=== PATIENT | female | born 1985 | race Caucasian/White ===

== ENCOUNTER → 2017-11-27 | Outpatient (REF) | payer OTHER ==
[2017-12-01 14:28] LABS: HPV HYBRID CAPTURE II Negative (Negative)
== END ==
LOC: M SFHCWAGY 16:04
DX: Z12.4 Encounter for screening for malignant neoplasm of cervix (principal)

== ENCOUNTER → 2018-03-02 | Outpatient (REF) | payer OTHER | LOC: M SFHCPLAZ 14:09 | DX: R10.9 Unspecified abdominal pain (principal) ==

== ENCOUNTER → 2018-03-18 | Outpatient (CLI) | payer BC | LOC: M RAD 07:15 | DX: R10.11 Right upper quadrant pain (principal) | CPT/HCPCS: 76705 ==

== ENCOUNTER → 2018-03-26 | Outpatient (REF) | payer BC | LOC: M SFHCPLAZ 16:55 | DX: D23.5 Other benign neoplasm of skin of trunk (principal); D23.71 Other benign neoplasm of skin of right lower limb, including hip | CPT/HCPCS: 88305 ==

== ENCOUNTER → 2018-07-07 | Outpatient (CLI) | payer BC | LOC: M WUC 11:46 | PROVIDERS: ATTEND Advanced Practice Midwife | DX: Z34.81 Encounter for supervision of other normal pregnancy, first trimester (principal); Z36.89 Encounter for other specified antenatal screening ==

== ENCOUNTER → 2018-07-07 | Outpatient (CLI) | payer BC ==
[2018-07-07 10:23] LABS: BASO % 0.4 % (0.0-1.0); EOS # 0.1 10^3/uL (0.0-0.50); EOS % 1.3 % (0.0-3.0); HEMOGLOBIN 12.1 g/dl (12.0-15.5); LYMPH # 1.6 10^3/uL (1.5-4.5); LYMPH % 23.3 % (24.0-44.0); MEAN CORPUSCULAR HEMOGLOBIN 32.1 pg (27.0-33.0); MEAN CORPUSCULAR HGB CONC 34.6 g/dl (32.0-36.5); MEAN CORPUSCULAR VOLUME 92.8 fl (80.0-96.0); MONO # 0.4 10^3/uL (0.0-0.8); MONO % 5.1 % (0.0-5.0); NEUTROPHILS # 4.9 10^3/uL (1.8-7.7); NEUTROPHILS % 69.5 % (36.0-66.0); PLATELET COUNT, AUTOMATED 292 10^3/uL (150-450); RED BLOOD COUNT 3.77 10^6/uL (4.00-5.40); WHITE BLOOD COUNT 7.1 10^3/uL (4.0-10.0)
[2018-07-07 11:16] LABS: HEPATITIS C VIRUS ABY INDEX 0.1 INDEX (<0.8); HIV 1&2 SCREEN CENTAUR NEGATIVE (NEGATIVE); RUBELLA IgG QUALITATIVE IMMUNE (IMMUNE)
[2018-07-07 12:33] LABS: CHLAMYDIA DNA AMPLIFICATION NEGATIVE (NEGATIVE); GC DNA AMPLIFICATION NEGATIVE (NEGATIVE)
== END ==
LOC: M SMT 08:00
PROVIDERS: ATTEND Advanced Practice Midwife
DX: Z34.81 Encounter for supervision of other normal pregnancy, first trimester (principal); Z36.89 Encounter for other specified antenatal screening

== ENCOUNTER → 2018-09-07 | Outpatient (CLI) | payer BC ==
--- NOTE | 2018-09-08 11:51 | REP ---
Clinical: Anatomical evaluation. Comparison: None . Findings: Examination demonstrates a single live intrauterine in variable presentation. motion is identified by technologist. Placenta is noted anterior and grade grade zero without evidence for placenta previa or abruption. Amniotic fluid volume is normal. Cervix measures 3.2 cm in length and appears closed. No evidence for nuchal cord. Gestational age by LMP 19 weeks 0 days with SYL [birth year]/1990 . Gestational age by current measurements 19 weeks for the with YSL it is 01/28/2019 . FHR equals 151 beats per minute. BPD 4.3 cm 19 weeks 0 days HC 16.7 cm 19 weeks 2 days AC 15.2 cm 20 weeks 3-day FL 3.2 cm 20 weeks 0 days HL 3.3 cm 21 weeks 0 days HC/AC ratio 1.10 Estimated weight 332 grams ( 91st percentile). Anatomical assessment demonstrates normal structures including cranium, choroid plexus, cavum, cerebellum/posterior fossa, facial features, lungs, four-chamber heart/ventricular outflow tracts, diaphragm, stomach, cord insertion/three-vessel cord, kidneys/bladder, spine, and extremities. Note is made of an echogenic focus within the left cardiac ventricle likely prominent chordae tendineae. Impression: 1. Single live intrauterine in variable presentation demonstrating appropriate interval growth. 2. Anatomical evaluation as noted above with prominent presumed chordae tendineae. Electronically Signed by Arnoldo Reese MD 09/08/2018 11:35 A
== END ==
LOC: M RAD 07:40
PROVIDERS: ATTEND Advanced Practice Midwife
DX: Z34.82 Encounter for supervision of other normal pregnancy, second trimester (principal); Z3A.00 Weeks of gestation of pregnancy not specified

== ENCOUNTER → 2018-11-02 | Outpatient (CLI) | payer BC ==
[2018-11-02 13:23] LABS: BASO % 0.4 % (0.0-1.0); EOS # 0.1 10^3/uL (0.0-0.50); EOS % 0.8 % (0.0-3.0); HEMATOCRIT 33.9 % (36.0-47.0); HEMOGLOBIN 11.6 g/dl (12.0-15.5); LYMPH # 1.9 10^3/uL (1.5-4.5); LYMPH % 22.7 % (24.0-44.0); MEAN CORPUSCULAR HEMOGLOBIN 31.9 pg (27.0-33.0); MEAN CORPUSCULAR HGB CONC 34.2 g/dl (32.0-36.5); MEAN CORPUSCULAR VOLUME 93.1 fl (80.0-96.0); MONO # 0.5 10^3/uL (0.0-0.8); MONO % 5.5 % (0.0-5.0); NEUTROPHILS % 70.4 % (36.0-66.0); PLATELET COUNT, AUTOMATED 256 10^3/uL (150-450); RED BLOOD COUNT 3.64 10^6/uL (4.00-5.40); WHITE BLOOD COUNT 8.5 10^3/uL (4.0-10.0)
== END ==
LOC: M SMT 08:45
PROVIDERS: ATTEND Specialist
DX: Z34.02 Encounter for supervision of normal first pregnancy, second trimester (principal); Z3A.00 Weeks of gestation of pregnancy not specified

== ENCOUNTER → 2019-01-04 | Outpatient (REF) | payer BC | LOC: M LAB REF 17:04 | PROVIDERS: ATTEND Obstetrics & Gynecology | DX: Z36.85 Encounter for antenatal screening for Streptococcus B (principal) ==

== ENCOUNTER 2019-01-31 10:07 | Inpatient (IN) | payer BC ==
[2019-01-31] VITALS (34 sets, daily range): BP systolic 103–138; BP diastolic 55–83
[~2019-01-31] VITALS: Ht 165.1 cm; Wt 81.8 kg
[2019-01-31] MEDS ORDERED: LACTATED RINGER'S 1000 ML IV STA (10:20)
--- NOTE | 2019-01-31 10:45 | HPEPDOC ---
Obstetrical History & Physical General Date of Admission Jan 31, 2019 at 10:07 Primary Care Physician: MEHDI CHAVEZ CNM History of Present Illness Patient is a 33-year-old female who is a at 39.6 weeks gestation with an SYL of 02/01/19 based of off her first trimester ultrasound. She initiated care in her first trimester with [facility]. Her has been uncomplicated. She presents to L&D with complaints of contractions since 0430. She reports active movement and bloody show. She denies leaking of fluid. Chief Complaint: Active Labor Information Provided By: Patient Age: 33 : 1 Term: 0 Pre-term: 0 Abortions: 0 Livin Care Care: Good Care Dating Final EDC: Feb 01, 2019 Final EDC by: 1st trimester (US) LMP: Apr 17, 2018 EGA at Admission: 39.6 Antepartum Course Height (inches): 65 Pre- weight (lbs.): 153 Admission Weight (lbs.): 182 Change in Weight (lbs.): 29 Past Medical History Past Obstetrical History : Past Obstetrical History: [facility]img[facility] [employer] History: History of STD (years ago and treated) Past Medical History Medical History varicella as a child Surgical History: Other (mole removal) Family History Significant Family History: Asthma, Cancer, Diabetes Social History Marital Status: Family situation: Spouse/partner home * Smoker: non-smoker Alcohol: Denies Drugs: denies Imunizations Tdap status: current Influenza Status: current Allergies Coded Allergies: No Known Allergies (Unverified , 01/31/19) Physical Examination Physical Examination GENERAL: Alert and oriented times three. BREAST: . ABDOMEN: Gravid and non-tender to touch. FETUS: Is vertex (VTX) by sterile vaginal examination (SVE), fetus is vertex (VTX) by Zackary. HEART RATE: Regular rate and rhythm. LUNGS: Clear to auscultation (CTA). EXTREMITIES: No edema. No clonus. Deep tendon reflexes (DTRs) + 2. Laboratory Data 24H LABS Laboratory Tests 2 01/31/19 10:18: Serology Scanned Report Hepatitis B Testing Urine Culture: No Growth Pertinent Laboratoy Data Blood Type: A+ RBC Antibody Screen: Negative HIV: Negative Hepatitis B: Negative Hepatitis C: Negative Rapid Plasma Reagin: Nonreactive Rubella: Immune Chlamydia/Gonorrhea: Negative Group B Streptococcus: Negative Glucose Tolerance Test: 74 Diag/Inter Therapy NIPT testing low risk and normal male Vaginal Examination Dilation: 3 cm Effacement: 100% Station: 0 Presentation: Cephalic presentation Position: Vertex (occiput) Assessment Heart Rate (FHR): 130 Variability: Moderate Accelerations: Positive Decelerations: None Tocometer Contractions: Yes Frequency: regular Assessment/Plan Assessment IUP at 39.6 weeks gestation active labor at term GBS negative Category I FHR tracing Plan Admit to L&D. OOB ad laurie. Diet: clears. Group B Streptococcus (GBS) negative. Labs and intravenous (IV) per unit protocol. Lactated Ringers (LR): Bolus 800 mL prior to epidural, then at 125 mL/hr. Anesthesia consult per patient's request. Anticipate cervical change. MEHDI CHAVEZ CNM Jan 31, 2019 10:44
[2019-01-31 11:30] LABS: HEMATOCRIT 37.2 % (36.0-47.0); HEMOGLOBIN 13.2 g/dl (12.0-15.5); MEAN CORPUSCULAR HEMOGLOBIN 31.6 pg (27.0-33.0); MEAN CORPUSCULAR HGB CONC 35.5 g/dl (32.0-36.5); PLATELET COUNT, AUTOMATED 249 10^3/uL (150-450); RED BLOOD COUNT 4.18 10^6/uL (4.00-5.40); WHITE BLOOD COUNT 12.1 10^3/uL (4.0-10.0)
[2019-01-31] MEDS ORDERED: FENTANYL 2MCG/ML ROPIVACAINE 0.2% IN 0.9% NACL 100ML IVBAG As Ordered ONE (11:35)
[2019-01-31] MEDS ORDERED: EPIDURAL COMMENT XX SCH (13:00)
[2019-01-31] MEDS ORDERED: FENTANYL/ROPIVACAINE/NACL BAG 100 ML EPIDURAL SCH (13:00)
[2019-01-31] MEDS ORDERED: diphenhydrAMINE INJ 50MG/ML VIAL (J1200) IV PRN (13:00)
[2019-01-31] MEDS ORDERED: REFRIGERATOR IV KEYS XX PRN (13:00)
[2019-01-31] MEDS ORDERED: EPIDURAL/PCA KEYS XX PRN (13:00)
[2019-01-31] MEDS ORDERED: ePHEDrine SULFATE 25 MG/5 ML(5MG/ML) SYRINGE IV PRN (13:00)
[2019-01-31] MEDS ORDERED: NALOXONE INJ 0.4 MG/1 ML VIAL (J2310) IV PRN (13:00)
[2019-01-31] MEDS ORDERED: ONDANSETRON 4MG/2ML VIAL (J2405) IV PRN (13:00)
--- NOTE | 2019-01-31 13:29 | IPNPDOC ---
Obstetrical Progress Note Date of Service Jan 31, 2019 Subjective Patient reports she if comfortable with her epidural. Objective Vital Signs Date Time Temp Pulse Resp B/P (MAP) Pulse Ox O2 Delivery O2 Flow Rate FiO2 01/31/19 11:15 63 18 118/74 (89) 01/31/19 10:29 97.2 Assessment Heart Rate (FHR): 120 Variability: Moderate Accelerations: Positive Decelerations: None Heart Rate Tracing: Category I Tocometer Contractions: Yes Frequency: regular Sterile Vaginal Examination Dilation: 4 cm Effacement (%): 100% Station: 0 (moderate amount of bloody show. ) Assessment and Plan Age: 33 : 1 Term: 0 Pre-term: 0 Abortions: 0 Livin EGA at Admission: 39.6 Status: Reassuring Group B Streptococcus: Negative Anticipate: Vaginal Delivery MEHDI CHAVEZ CNM Jan 31, 2019 13:29
--- NOTE | 2019-01-31 15:40 | IPNPDOC ---
Obstetrical Progress Note Date of Service Jan 31, 2019 Subjective Patient comfortable with her epidural. Objective Vital Signs Date Time Temp Pulse Resp B/P (MAP) Pulse Ox O2 Delivery O2 Flow Rate FiO2 01/31/19 13:55 66 18 103/70 (81) 01/31/19 10:29 97.2 Assessment Heart Rate (FHR): 120 Variability: Moderate Accelerations: Positive Decelerations: None Heart Rate Tracing: Category I Tocometer Contractions: Yes Frequency: regular Sterile Vaginal Examination Dilation: 4 cm (4-5 cm) Effacement (%): 100% Station: 0 Assessment and Plan Status: Reassuring Group B Streptococcus: Negative Additional Comments Moderate amount of bleeding noted. Consider diagnosis of placental abruption. Dr. Gonzalez notified and will be over after office hours when AROM is done. Will start low dose IV Pitocin to see how fetus tolerates stronger contractions. MEHDI CHAVEZ CNM Jan 31, 2019 15:40
[2019-01-31] MEDS ORDERED: OXYTOCIN DRIP 30 UNITS in IV 1 EA IV SCH (15:45)
--- NOTE | 2019-01-31 16:59 | IPNPDOC ---
Obstetrical Progress Note Date of Service Jan 31, 2019 Subjective Patient reports feeling some rectal pressure with contractions. Objective Vital Signs Date Time Temp Pulse Resp B/P (MAP) Pulse Ox O2 Delivery O2 Flow Rate FiO2 01/31/19 13:55 66 18 103/70 (81) 01/31/19 10:29 97.2 Assessment Heart Rate (FHR): 130 Variability: Moderate Accelerations: Positive Decelerations: Prolonged Heart Patterns: Bradycardia Heart Rate Tracing: Category II Tocometer Contractions: Yes Frequency: regular, other (2-4 minutes) Sterile Vaginal Examination Dilation: 5 cm Effacement (%): 100% Station: 0 Postion/Presentation: Cephalic presentation Assessment and Plan EGA at Admission: 39.6 Additional Comments AROM to a large amount of thick meconium. No extra bleeding noted with AROM. After AROM patient reported the need to urinate. Rubalcava bulb checked and repositioned. With exam a moderate amount of red bleeding was noted. FSE attempted but not recording. FSE removed. Prolonged deceleration noted into the 90's. Dr. Gonzalez present during exam. Patient repositioned, O2 applied and bolus started. Resolved bradycardia. Will continue to monitor. Category I tracing noted after bradycardia resolved. Reviewed with patient and family that she may be having a placental abruption and if continued heart rate changes and increased vaginal bleeding noted that a section may be warranted. Patient verbalized understanding. Will continue to monitor. IV Pitocin was also shut off with start of bradycardia. MEHDI CHAVEZ CNM Jan 31, 2019 16:59
[2019-01-31] MEDS ORDERED: LR 1,000 ML IV SCH (17:00)
--- NOTE | 2019-01-31 19:25 | IPNPDOC ---
Obstetrical Progress Note Date of Service Jan 31, 2019 Subjective Reports she can feel some of the contractions in her back but is comfortable. Objective Vital Signs Date Time Temp Pulse Resp B/P (MAP) Pulse Ox O2 Delivery O2 Flow Rate FiO2 01/31/19 18:23 99.5 66 18 122/77 (92) Assessment Heart Rate (FHR): 130 Variability: Minimal to moderate Accelerations: Positive Decelerations: None Heart Rate Tracing: Category I Tocometer Contractions: Yes Frequency: regular, other (every 2-4 minutes) Sterile Vaginal Examination Dilation: 7 cm Effacement (%): 100% Station: 0 Postion/Presentation: Cephalic presentation Assessment and Plan Age: 33 : 1 Livin EGA at Admission: 39.6 Status: Reassuring Group B Streptococcus: Negative Additional Comments Scant amount of bleeding noted with cervical exam. Will continue to monitor bleeding, FHR, and contraction pattern. Will notify neonatology when we are closer to delivery. Reviewed with patient and family that we will continue to monitor. Reviewed probably diagnosis of placental abruption. Reviewed increased risk of . Patient reports she desires to try for a vaginal delivery. Dr. Gonzalez notified of cervical change. MEHDI CHAVEZ CNM Jan 31, 2019 19:25
--- NOTE | 2019-01-31 20:41 | IPNPDOC ---
Obstetrical Progress Note Date of Service Jan 31, 2019 Subjective Reports pain located left sided-upper back. States she is nauseous and shaking. Objective Vital Signs Date Time Temp Pulse Resp B/P (MAP) Pulse Ox O2 Delivery O2 Flow Rate FiO2 01/31/19 19:30 99.3 16 01/31/19 18:23 66 122/77 (92) Assessment Heart Rate (FHR): 130 Variability: Moderate Accelerations: Positive Decelerations: None Heart Rate Tracing: Category I Tocometer Contractions: Yes Frequency: regular Sterile Vaginal Examination Dilation: complete Effacement (%): 100% Station: +1 Postion/Presentation: Cephalic presentation Assessment and Plan Status: Reassuring Group B Streptococcus: Negative Anticipate: Vaginal Delivery Additional Comments Anesthesia contacted to help give patient some pain control. Will labor down for 30-45 minutes and then start to push. Placenta is anterior. She denies any pain in abdomen. Neonatology will be notified after we start pushing. MEHDI CHAVEZ CNM Jan 31, 2019 20:41
--- NOTE | 2019-01-31 21:08 | IPNPDOC ---
Obstetrical Progress Note Date of Service Jan 31, 2019 Subjective Patient reports pain is still present in upper left back region after anesthesia gave her a bolus. Objective Vital Signs Date Time Temp Pulse Resp B/P (MAP) Pulse Ox O2 Delivery O2 Flow Rate FiO2 01/31/19 19:30 99.3 16 01/31/19 18:23 66 122/77 (92) Assessment Heart Rate (FHR): 130 Variability: Moderate Accelerations: Positive Decelerations: None Heart Rate Tracing: Category II Tocometer Contractions: Yes Frequency: regular Sterile Vaginal Examination Dilation: complete Effacement (%): 100% Station: +1 Assessment and Plan Additional Comments Reviewed status of patient with Dr. Gonzalez. We will continue to push at this point. Reviewed scan bleeding and location of pain with Dr. Gonzalez. He will attend delivery if there is a change in FHR or increased bleeding. MEHDI CHAVEZ CNM Jan 31, 2019 21:08
--- NOTE | 2019-01-31 21:31 | IPNPDOC ---
Obstetrical Progress Note Date of Service Jan 31, 2019 Objective Vital Signs Date Time Temp Pulse Resp B/P (MAP) Pulse Ox O2 Delivery O2 Flow Rate FiO2 01/31/19 19:30 99.3 16 01/31/19 18:23 66 122/77 (92) Assessment and Plan Additional Comments Dr. Gonzalez called and instructed to come in to evaluate patient. MEHDI CHAVEZ CNM Jan 31, 2019 21:31
[2019-02-01] VITALS (10 sets, daily range): BP systolic 106–146; BP diastolic 57–99
[2019-02-01] MEDS ORDERED: OXYTOCIN DRIP 30 UNITS in IV 1 EA IV SCH (00:07)
[2019-02-01] MEDS ORDERED: METHYLERGONOVINE MALEATE 0.2 MG TAB PO PRN (00:15)
[2019-02-01] MEDS ORDERED: DIBUCAINE 1% OINTMENT 30GM TOP PRN (00:15)
[2019-02-01] MEDS ORDERED: ANUSOL HC CREAM 30GM TOP PRN (00:15)
[2019-02-01] MEDS ORDERED: MEASLES,MUMPS,RUBELLA VACCINE INJ (MMR-II) (90707) SC SCH (00:15)
[2019-02-01] MEDS ORDERED: ACETAMINOPHEN TAB 650MG DOSE (2X325MG) PO PRN (00:15)
[2019-02-01] MEDS ORDERED: RHOGAM 300 MCG (1500 IU) INJ (J2790) IM SCH (00:15)
[2019-02-01] MEDS ORDERED: DOCUSATE SODIUM 100 MG CAP PO PRN (00:15)
[2019-02-01] MEDS ORDERED: IBUPROFEN 600 MG TAB PO PRN (00:15)
[2019-02-01] MEDS: ACETAMINOPHEN 500 MG TAB PO PRN ×3 (01:43→15:00)
[2019-02-01] MEDS: IBUPROFEN 800 MG TAB PO PRN ×3 (01:43→19:21)
[2019-02-01 06:44] LABS: HEMATOCRIT 27.2 % (36.0-47.0); MEAN CORPUSCULAR HEMOGLOBIN 32.1 pg (27.0-33.0); MEAN CORPUSCULAR HGB CONC 35.3 g/dl (32.0-36.5); PLATELET COUNT, AUTOMATED 187 10^3/uL (150-450); RED BLOOD COUNT 2.99 10^6/uL (4.00-5.40); WHITE BLOOD COUNT 16.2 10^3/uL (4.0-10.0)
[2019-02-01 06:49] LABS: HEMOGLOBIN 9.6 g/dl (12.0-15.5)
[2019-02-01] MEDS: PRENATAL VITAMINS CHEWABLE TABLET PO SCH (08:21)
--- NOTE | 2019-02-01 08:27 | IPNPDOC ---
Progress Note Date of Service: Feb 01, 2019 Day#: 1 Progress Note SUBJECT: She has been ambulating, voiding spontaneously without issue and tolerating regular diet. Reports her perineum area is sore. OBJECTIVE: VITAL SIGNS: Within normal limits, afebrile. Alert and oriented times three. Breath sounds clear to auscultation. Heart rate: Regular rate and rhythm, no murmurs, rubs or gallops. Abdomen: Fundus firm at U-1. Soft, NTTP. Minimal lochia. Perineum: swollen with erythema. ASSESSMENT: Day 1 PLAN: 1. Continue supportive nursing care. 2. Anticipate discharge tomorrow. VS, I&O, 24H, Fishbone Vital Signs/I&O Vital Signs Date Time Temp Pulse Resp B/P (MAP) Pulse Ox O2 Delivery O2 Flow Rate FiO2 02/01/19 05:54 99.7 69 18 110/57 (74) 02/01/19 02:21 97 I&O- Last 24 Hours up to 6 AM 02/01/19 06:00 Intake Total 3250 ml Output Total 2150 ml Balance 1100 ml Laboratory Data 24H LABS Laboratory Tests 2 01/31/19 10:18: Serology Scanned Report Hepatitis B Testing 01/31/19 11:12: Nucleated Red Blood Cells % (auto) 0.0, Syphilis Serology NONREACTIVE 02/01/19 06:29: Nucleated Red Blood Cells % (auto) 0.0 CBC/BMP Laboratory Tests 01/31/19 11:12 Red Blood Count 4.18, Mean Corpuscular Volume 89.0, Mean Corpuscular Hemoglobin 31.6, Mean Corpuscular Hemoglobin Concent 35.5, Red Cell Distribution Width 12.4 02/01/19 06:29 Red Blood Count 2.99 L, Mean Corpuscular Volume 91.0, Mean Corpuscular Hemoglobin 32.1, Mean Corpuscular Hemoglobin Concent 35.3, Red Cell Distribution Width 12.6 MEHDI CHAVEZ CNM Feb 01, 2019 08:27
--- NOTE | 2019-02-01 09:29 | DN ---
DELIVERY SUMMARY DELIVERY DATE AND TIME: 01/31/2019 at 2318. STATUS: Delivered. Spontaneous vaginal delivery. PROVIDER: Karey Deleon CNM, WHNP ANESTHESIA: Epidural. ESTIMATED BLOOD LOSS: 700. FINDINGS: Male, 7 pounds 7 ounces, 3360 grams, scores 8/9, meconium, placental abruption. Patient is a 33-year-old female who is now a 1, para 1 0-0-1 who presented to labor and deliver in active labor at 39 weeks and 6 days gestation. The patient progressed to fully dilated at 2032. She did have a moderate amount of bleeding from time of admission until after delivery. Dr. Gonzalez was notified and present during the majority of pushing, delivery, and repair. Dr. Stewart was present for the delivery of the fetus who is neonatology. The patient progressed to fully dilated at 2032 and pushed to a living male in the left occiput anterior (DOMENIC) position with restitution to left occiput transverse (LOT) at 2317. The anterior shoulder delivered with ease and corpus immediately followed. The baby was placed on the maternal abdomen, active and crying with stimulation. The cord was clamped times two and cut by the father of the baby. The baby was brought over to the warming table to be evaluated by neonatology. The placenta delivered spontaneously and intact at 2324. Uterine hemostasis was achieved via rapid infusion of IV Pitocin and fundal massage. The perineum, cervix, and vagina was inspected and found to have bilateral sulcus tears with a second degree perineal laceration. The repair was done by Dr. Gonzalez as I assisted with retraction. Mom plans to breastfeed her . Both mom and baby are in stable condition. She plans on naming him Kevin. All counts of instruments and sponges are correct.
[2019-02-02] MEDS: IBUPROFEN 800 MG TAB PO PRN (04:00)
[2019-02-02 06:00] VITALS: BP 107/62
[2019-02-02] MEDS: PRENATAL VITAMINS CHEWABLE TABLET PO SCH ×2 (08:08→09:00)
[2019-02-02] MEDS: ACETAMINOPHEN 500 MG TAB PO PRN (08:09)
== END 2019-02-02 10:50 | disposition home or self-care (01) | DRG 560 ==
LOC: M LDI 10:07 → M OBS 02-01 02:04
PROVIDERS: ADMIT Advanced Practice Midwife; ATTEND Advanced Practice Midwife
PROC: 10E0XZZ Delivery of Products of Conception, External Approach (ICD-10-PCS; principal; 2019-01-31)
PROC: 10907ZC Drainage of Amniotic Fluid, Therapeutic from Products of Conception, Via Natural or Artificial Opening (ICD-10-PCS; 2019-01-31)
PROC: 0KQM0ZZ Repair Perineum Muscle, Open Approach (ICD-10-PCS; 2019-01-31)
PROC: 0HQ9XZZ Repair Perineum Skin, External Approach (ICD-10-PCS; 2019-01-31)
DX: O45.93 Premature separation of placenta, unspecified, third trimester (principal); Z3A.39 39 weeks gestation of pregnancy; Z37.0 Single live birth; O77.0 Labor and delivery complicated by meconium in amniotic fluid; O70.1 Second degree perineal laceration during delivery; O70.0 First degree perineal laceration during delivery

== ENCOUNTER → 2019-11-18 | Outpatient (REF) | payer BC | LOC: M LAB REF 10:13 | PROVIDERS: ATTEND Dermatology | DX: D07.1 Carcinoma in situ of vulva (principal) ==

== ENCOUNTER → 2020-08-09 | Outpatient (REF) | payer BC | LOC: M SFHCWAGY 16:58 | PROVIDERS: ATTEND Advanced Practice Midwife | DX: Z12.4 Encounter for screening for malignant neoplasm of cervix (principal) ==

== ENCOUNTER → 2020-08-20 | Outpatient (REF) | payer BC ==
[2020-08-20 15:40] LABS: HEMATOCRIT 40.2 % (36.0-47.0); HEMOGLOBIN 13.2 g/dl (12.0-15.5); MEAN CORPUSCULAR HEMOGLOBIN 31.1 pg (27.0-33.0); MEAN CORPUSCULAR HGB CONC 32.8 g/dl (32.0-36.5); MEAN CORPUSCULAR VOLUME 94.6 fl (80.0-96.0); PLATELET COUNT, AUTOMATED 369 10^3/uL (150-450); RED BLOOD COUNT 4.25 10^6/uL (4.00-5.40); WHITE BLOOD COUNT 7.6 10^3/uL (4.0-10.0)
[2020-08-20 15:57] LABS: ALBUMIN 3.7 GM/DL (3.2-5.2); ALT/SGPT 19 U/L (12-78); BILIRUBIN,TOTAL 0.7 MG/DL (0.2-1.0); BLOOD UREA NITROGEN 10 MG/DL (7-18); CALCIUM LEVEL 9.4 MG/DL (8.5-10.1); CARBON DIOXIDE LEVEL 27 MEQ/L (21-32); CHLORIDE LEVEL 105 MEQ/L (98-107); CREATININE FOR GFR 0.73 MG/DL (0.55-1.30); GLOMERULAR FILTRATION RATE > 60.0 (>60); GLUCOSE, FASTING 124 MG/DL (70-100); POTASSIUM SERUM 4.5 MEQ/L (3.5-5.1); SODIUM LEVEL 141 MEQ/L (136-145); THYROID STIMULATING HORMONE 0.878 uIU/ML (0.358-3.740); TOTAL PROTEIN 7.1 GM/DL (6.4-8.2)
== END ==
LOC: M PLALAB 13:45
PROVIDERS: ATTEND Advanced Practice Midwife
DX: Z12.4 Encounter for screening for malignant neoplasm of cervix (principal)

== ENCOUNTER → 2020-09-05 | Outpatient (REF) | payer BC ==
[2020-09-05 11:27] LABS: HEMOGLOBIN A1c 4.9 %
== END ==
LOC: M PLALAB 08:37
PROVIDERS: ATTEND Advanced Practice Midwife
DX: R73.09 Other abnormal glucose (principal)

== ENCOUNTER → 2021-02-22 | Outpatient (REF) | payer OTHER | LOC: M LAB REF 17:28 | PROVIDERS: ATTEND Dermatology | DX: D48.5 Neoplasm of uncertain behavior of skin (principal) ==

== ENCOUNTER → 2021-09-12 | Outpatient (REF) | payer OTHER | LOC: M SFHCDERM 17:25 | PROVIDERS: ATTEND Dermatology | DX: D48.9 Neoplasm of uncertain behavior, unspecified (principal) ==

== ENCOUNTER → 2023-10-29 | Outpatient (CLI) | payer OTHER | LOC: M RAD 13:48 | PROVIDERS: ATTEND Advanced Practice Midwife | DX: R10.2 Pelvic and perineal pain (principal); Z30.431 Encounter for routine checking of intrauterine contraceptive device ==

== ENCOUNTER → 2023-12-25 | Outpatient (REF) | payer OTHER ==
[2023-12-30 13:52] LABS: HPV APTIMA Not Detected (Not Detected)
== END ==
LOC: M PLALAB 08:54
PROVIDERS: ATTEND Advanced Practice Midwife
DX: Z12.4 Encounter for screening for malignant neoplasm of cervix (principal)
CPT/HCPCS: 87624; G0123

== ENCOUNTER → 2024-03-15 | Outpatient (CLI) | payer OTHER ==
[2024-03-15 11:07] LABS: HEMOGLOBIN 12.4 g/dl (12.0-15.5); MEAN CORPUSCULAR HEMOGLOBIN 31.4 pg (27.0-33.0); MEAN CORPUSCULAR HGB CONC 33.5 g/dl (32.0-36.5); MEAN CORPUSCULAR VOLUME 93.7 fl (80.0-96.0); PLATELET COUNT, AUTOMATED 301 10^3/uL (150-450); RED BLOOD COUNT 3.95 10^6/uL (4.00-5.40); WHITE BLOOD COUNT 4.6 10^3/uL (4.0-10.0)
[2024-03-15 11:10] LABS: FREE T4 1.02 NG/DL (0.89-1.76)
[2024-03-15 11:11] LABS: ALBUMIN 3.9 G/DL (3.2-5.2); ALKALINE PHOSPHATASE 42 U/L (35-104); ALT/SGPT < 9 U/L (7.0-40); AST/SGOT 9 U/L (<34); BILIRUBIN,TOTAL 1.1 MG/DL (0.3-1.2); BLOOD UREA NITROGEN 8 MG/DL (9-23); CALCIUM LEVEL 9.3 MG/DL (8.5-10.1); CARBON DIOXIDE LEVEL 27 MMOL/L (20-31); CHLORIDE LEVEL 106 MMOL/L (98-107); CREATININE FOR GFR 0.64 MG/DL (0.55-1.30); GLOMERULAR FILTRATION RATE > 60.0 (>60); GLUCOSE, FASTING 89 MG/DL (60-100); POTASSIUM SERUM 4.3 MMOL/L (3.5-5.1); SODIUM LEVEL 139 MMOL/L (136-145); TOTAL PROTEIN 6.8 G/DL (5.7-8.2)
== END ==
LOC: M WUC 08:15
PROVIDERS: ATTEND Nurse Practitioner Adult Health
DX: Z00.00 Encounter for general adult medical examination without abnormal findings (principal); Z13.29 Encounter for screening for other suspected endocrine disorder; E55.9 Vitamin D deficiency, unspecified; M54.40 Lumbago with sciatica, unspecified side